=== PATIENT | female | born 1955 | race Caucasian/White ===

== ENCOUNTER 2018-07-20 10:18 | Outpatient (CLI) | payer OTHER ==
--- NOTE | 2018-07-27 15:45 | MMO ---
SCREENING MAMMOGRAM 07/20/18 63-year-old female presents for annual screening mammography. Comparison made to previous exam from 04/23/15 and 06/25/12. Images are also evaluated using computer aided detection. Images demonstrate fibroglandular tissue seen in both breasts. Benign bilateral breast calcifications seen. No definite evidence of masses or lesions seen. No evidence of architectural distortion seen. Mammographic appearance is stable. IMPRESSION: BIRADS 2: Benign Finding(s) Routine annual screening mammography (for women over age 40). POS: [facility]
== END 2018-07-20 10:19 | disposition home or self-care (01) ==
LOC: SCSMAMMO 10:18
PROVIDERS: ATTEND Family Medicine
DX: Z12.31 Encounter for screening mammogram for malignant neoplasm of breast (principal)
CPT/HCPCS: 77067